=== PATIENT | male | born 1955 | race Caucasian/White ===

== ENCOUNTER 2017-07-18 23:08 | Emergency (ER) | payer MEDICAID ==
[~2017-07-18] VITALS: Ht 177.8 cm; Wt 68.0 kg
--- NOTE | 2017-07-18 23:08 | NUR ---
BIBRA 62 FROM L SHOULDER/ NECK PAIN X 2 WEEKS. DENIES CP OR TRAUMA. NO SOB. VERY RESTLESS AT BEDSIDE. VSS NAD. A/OX4 WILL CONTINUE TO MONITOR FOR ANY CHANGES DURING THE SHIFT.
[2017-07-18] MEDS ORDERED: ONDANSETRON 4 MG TAB.RAPDIS SL ONE (23:30)
[2017-07-18] MEDS ORDERED: HYDROCODONE/APAP 10/325MG 1 EA TABLET PO ONE (23:30)
[2017-07-18] MEDS ORDERED: ONDANSETRON 4 MG TAB.RAPDIS ONE (23:33)
[2017-07-18] MEDS ORDERED: HYDROCODONE/APAP 10/325MG 1 EA TABLET ONE (23:33)
--- NOTE | 2017-07-18 23:36 | NUR ---
NURSE PRACTITIONER PHYSICIAN ASSISTANT AT BEDSIDE
--- NOTE | 2017-07-19 00:15 | NUR ---
PT OFF TO CT
--- NOTE | 2017-07-19 00:25 | NUR ---
PT BACK FROM CT
[2017-07-19 01:44] VITALS: BP 188/112
== END 2017-07-19 01:45 | disposition home or self-care (01) ==
LOC: ER 23:20
DX: M25.512 Pain in left shoulder (principal); M25.511 Pain in right shoulder; M54.2 Cervicalgia; I10 Essential (primary) hypertension; Z88.0 Allergy status to penicillin
CPT/HCPCS: 71045; 72125; 73030 ×2; 99284; A4606; Q0162; Z7610